=== PATIENT | male | born 2000 | race Two or more races ===

== ENCOUNTER 2022-07-27 18:25 | Emergency (ER) | payer MEDICAID, OTHER ==
[~2022-07-27] VITALS: Ht 180.3 cm; Wt 102.0 kg
[2022-07-27 18:56] VITALS: BP 134/85
== END 2022-07-27 20:57 | disposition left against medical advice (07) ==
LOC: ER 18:25
DX: S61.213A Laceration without foreign body of left middle finger without damage to nail, initial encounter (principal); Z53.21 Procedure and treatment not carried out due to patient leaving prior to being seen by health care provider; W26.0XXA Contact with knife, initial encounter; Y93.89 Activity, other specified; Y92.89 Other specified places as the place of occurrence of the external cause; Y99.8 Other external cause status